=== PATIENT | male | born 1950 | race African-American/Black ===

== ENCOUNTER 2019-03-18 18:01 | Inpatient (IN) | payer OTHER ==
--- NOTE | 2019-03-18 19:17 | PDOC ---
History of Present Illness - General Chief Complaint: Injury Stated Complaint: FALL INJURY Time Seen by Provider: 03/18/19 19:15 History Source: Patient - History of Present Illness Initial Comments: 03/18/19 20:25 68-year-old male past medical history of hypertension,Seizure disorder, hypercholesteremia, HIV with viral load undetectable, left hip fracture status post hip replacement complaining of trip and fall yesterday to the right side. Patient reports right hip pain with inability to walk since the fall. Patient is unable to weight-bear. Patient was brought in by ambulance for evaluation. PCP: Dr. Cooley left hip surgery at [facility] 2018 03/18/19 20:53 Past History - Past Medical History Allergies/Adverse Reactions: Allergies Allergy/AdvReac Type Severity Reaction Status Date / Time No Known Allergies Allergy Verified 03/18/19 18:40 Home Medications: Ambulatory Orders Aspirin [Ecotrin] 81 mg PO DAILY 03/18/19 Atorvastatin Calcium 10 mg PO DAILY 03/18/19 Elviteg/Cob/Emtri/Tenof Alafen [Genvoya Tablet] 1 tab PO DAILY 03/18/19 Ferrous Sulfate 325 mg PO Q12H 03/18/19 Levetiracetam 500 mg PO BID 03/18/19 Lisinopril 5 mg PO DAILY 03/18/19 COPD: No HTN: Yes Hypercholesterolemia: Yes HIV: Yes Seizures: Yes - Surgical History Orthopedic Surgery: Yes (left hip surgery ) - Psycho Social/Smoking Cessation Hx Smoking History: Never smoked Review of Systems - Review of Systems Able to Perform ROS?: Yes Is the patient limited Tamazight proficient: No Constitutional: No: Symptoms Reported, See HPI, Chills, Diaphoresis, Fever, Loss of Appetite, Malaise, Night Sweats, Weakness, Weight Stable, Unintentional Wgt. Loss, Unexplained wgt Loss, Other Musculoskeletal: Yes: Other (hip pain) *Physical Exam - Vital Signs Last Vital Signs Temp Pulse Resp BP Pulse Ox 98 F 99 H 18 139/94 100 03/18/19 18:29 03/18/19 18:29 03/18/19 18:29 03/18/19 18:29 03/18/19 18:29 - Physical Exam General Appearance: Yes: Appropriately Dressed Musculoskeletal: positive: Other (right leg slight shortening, unable to ROM. ) Extremity: positive: Normal Capillary Refill, Normal Inspection Integumentary: positive: Warm Neurologic: positive: Fully Oriented, Alert ED Treatment Course - LABORATORY CBC & Chemistry Diagram: 03/18/19 21:12 03/18/19 21:12 ED Progress Note - Progress Note Progress Note: 03/18/19 20:29 A: right femur fracture P: xray cbc cmp pt/ ptt type and screen Medical Decision Making - Medical Decision Making 03/18/19 20:35 Dr. Grossman/ ida paged 03/18/19 21:14 dr. grossman/ ida paged x 3 . pending call back. 03/18/19 21:[address] grossman. recommends admission/ npo Preop labs 03/19/19 03:52 Discharge - Discharge Information Problems reviewed: Yes Clinical Impression/Diagnosis: Closed right femoral fracture Qualifiers: Encounter type: initial encounter Femur location: base of neck Fracture alignment: nondisplaced Qualified Code(s): S72.044A - Nondisplaced fracture of base of neck of right femur, initial encounter for closed fracture - Admission Yes - Follow up/Referral - Patient Discharge Instructions - Post Discharge Activity
[2019-03-18] MEDS ORDERED: ACETAMINOPHEN 1000 MG/100 ML VIAL (NON FORMULARY) IVPB ONE (20:11)
[2019-03-18] MEDS ORDERED: SODIUM CHLORIDE 1,000 ML IV SCH (20:15)
--- NOTE | 2019-03-18 21:24 | PN ---
Teaching Attending Note Name of Resident: Nehal Baca ATTENDING PHYSICIAN STATEMENT I saw and evaluated the patient. I reviewed the resident's note and discussed the case with the resident. I agree with the resident's findings and plan as documented. SUBJECTIVE: 68-year-old male with history of hypertension, seizure disorder, hypercholesterolemia, HIV reported to be well-controlled on Genvoya with allegedly undetectable HIV viral load status post left hip fracture with hip replacement presented to hospital complaining of a trip and fall shortly prior to presentation. Patient reports that [place] and [place] and fell on his right hip and subsequently was unable to walk or weight- bear. He was brought in by ambulance for evaluation. He reports significant pain to his right hip. She denied any head trauma or LOC. OBJECTIVE: Last Vital Signs Temp Pulse Resp BP Pulse Ox 98 F 99 H 18 139/94 100 03/18/19 18:29 03/18/19 18:29 03/18/19 18:29 03/18/19 18:29 03/18/19 18:29 GENERAL: Thin, frail, not in acute distress HEENT: Normocephalic, atraumatic. PERRLA, EOMI. No conjunctival pallor. Sclera are non- icteric. Moist mucous membranes. Oropharynx is clear. NECK: Supple. Full ROM. No JVD. Carotid pulses 2+ and symmetric, without bruits. No thyromegaly. No lymphadenopathy. CARDIOVASCULAR: Regular rate and rhythm. No murmurs, rubs, or gallops. Distal pulses are 2+ and symmetric. PULMONARY: No evidence of respiratory distress. Lungs clear to auscultation bilaterally. No wheezing, rales or rhonchi. ABDOMINAL: Soft. Non-tender. Non-distended. No rebound or guarding. No organomegaly. Normoactive bowel sounds. MUSCULOSKELETAL Normal range of motion at all joints. No bony deformities or tenderness. No CVA tenderness. EXTREMITIES: Right lower extremity externally rotated SKIN: Warm and dry. Normal capillary refill. No rashes. No jaundice. PSYCHIATRIC: Cooperative. Good eye contact. Appropriate mood and affect. Abnormal Lab Results 03/18/19 03/18/19 21:12 21:12 Hct 49.1 H Plt Count 132 L BUN 32.5 H Random Glucose 66 L Calcium 10.2 H Total Bilirubin 2.6 H AST 130 H Total Protein 8.6 H Imaging reviewed Mildly impacted fracture involving right femoral neck which is probably acute, status post left hip replacement. No obvious periprosthetic fracture visualized. ASSESSMENT AND PLAN: 68-year-old male with right femoral neck fracture, acute. Orthopedics was consulted from the ER Dr. Grossman is aware. Admit to [facility] Orthopedics consult PT and PTT Type and screen Bedrest Pain control IV fluid perioperatively DVT prophylaxis with heparin subcu #Hyperbilirubinemiauncertain cause Right upper quadrant ultrasound to evaluate gallbladder #Hypoglycemia Will place on D5W #Thrombocytopenia Continue to monitor platelets can evaluate also for splenomegaly with abdominal ultrasound #HIV Would obtain medical records from HIV doctor ID consult for genvoya approval #Seizure disorder Keppra 500 mg IV twice daily for seizure prophylaxis
[2019-03-18] MEDS ORDERED: ACETAMINOPHEN INJECTION 100 ML IVPB ONE (22:14)
[2019-03-18 22:35] LABS: BASO % 0.7 % (0-2.0); EOS % 0.2 % (0-4.5); HEMATOCRIT 49.1 % (35.4-49); HEMOGLOBIN 16.7 GM/dL (11.7-16.9); MCH 31.9 pg (25.7-33.7); MCHC 34.1 g/dl (32.0-35.9); MEAN CELL VOLUME 93.6 fl (80-96); MEAN PLT VOLUME 10.1 fl (7.5-11.1); MONO % 5.1 % (3.8-10.2); PLATELET COUNT 132 K/MM3 (134-434); RBC 5.24 M/mm3 (4.00-5.60); RDW 13.8 % (11.9-15.9); WHITE BLOOD COUNT 7.9 K/mm3 (4.0-10.0)
--- NOTE | 2019-03-18 22:44 | HP ---
CHIEF COMPLAINT: right thigh pain and inability to ambulate after fall PCP: Dr Cooley HISTORY OF PRESENT ILLNESS: 68 y/o M with PMH of HTN, HLD, seizure disorder (last seizure in 2018), HIV with undetectable viral load, left hip fracture s/p hip replacement last year at [facility] presenting to the ED for right leg pain after a fall. According to the patient, he was rushing to cross the street when he tripped over the broken pavement and fell on his right side without injury to his shoulders or head. He denied dizziness, loss of consciousness, syncope, palpitations, blurry vision or headache prior to fall. Right after the fall, patient was able to ambulate with assistance from bystanders and 2 police officers who then took him home. 3- 4 hours later, the patient began to feel a sharp, intermittent and non radiating 5/10 pain in his right leg.The pain was not associated with limb weakness or numbness; But with inability to bear weight on the right leg and ambulation. Direct pressure further aggravates the pain with no alleviating factors. Patient further denied SOB,chest pain, back pain or change in BM or urination. ER course was notable for: (1) cbc unremarkable, CMP remarkable for BG 66, BUN 32.5, cr high normal at 1.3 , t eliecer 2.6, AST 130, mild hypercalcemia at 10.2 and total protein at 8.9 (2) CXR with no acute pathology. Hip/pelvis Xray: mildly impacted fracture of right femoral neck. (3) Ortho Dr Grossman contacted: pre op labs, NPO and will see pt in the am Recent Travel: none PAST MEDICAL HISTORY: as above PAST SURGICAL HISTORY: appendectomy , Left hip replacement Social History: Smokin/2 PPD for 9 yrs Alcohol: denies buy used to in his younger years Drugs: cocaine and marijuana in his younger years Allergies No Known Allergies Allergy (Verified 03/18/19 18:40) HOME MEDICATIONS: Home Medications Medication Instructions Recorded Aspirin [Ecotrin] 81 mg PO DAILY 03/18/19 Atorvastatin Calcium 10 mg PO DAILY 03/18/19 Elviteg/Cob/Emtri/Tenof Alafen 1 tab PO DAILY 03/18/19 [Genvoya Tablet] Ferrous Sulfate 325 mg PO Q12H 03/18/19 Levetiracetam 500 mg PO BID 03/18/19 Lisinopril 5 mg PO DAILY 03/18/19 REVIEW OF SYSTEMS CONSTITUTIONAL: Absent: fever, chills, diaphoresis, generalized weakness, malaise, loss of appetite, weight change HEENT: Absent: rhinorrhea, nasal congestion, throat pain, throat swelling, difficulty swallowing, mouth swelling, ear pain, eye pain, visual changes CARDIOVASCULAR: Absent: chest pain, syncope, palpitations, irregular heart rate, lightheadedness , peripheral edema RESPIRATORY: Absent: cough, shortness of breath, dyspnea with exertion, orthopnea, wheezing, stridor, hemoptysis GASTROINTESTINAL: Absent: abdominal pain, abdominal distension, nausea, vomiting, diarrhea, constipation, melena, hematochezia GENITOURINARY: Absent: dysuria, frequency, urgency, hesitancy, hematuria, flank pain, genital pain MUSCULOSKELETAL: thigh pain Absent: myalgia, arthralgia, joint swelling, back pain, neck pain SKIN: Absent: rash, itching, pallor HEMATOLOGIC/IMMUNOLOGIC: Absent: easy bleeding, easy bruising, lymphadenopathy, frequent infections ENDOCRINE: Absent: unexplained weight gain, unexplained weight loss, heat intolerance, cold intolerance NEUROLOGIC: Absent: headache, focal weakness or paresthesias, dizziness, unsteady gait, seizure, mental status changes, bladder or bowel incontinence PSYCHIATRIC: Absent: anxiety, depression, suicidal or homicidal ideation, hallucinations. PHYSICAL EXAMINATION Vital Signs - 24 hr 03/18/19 18:29 Temperature 98 F Pulse Rate 99 H Respiratory 18 Rate Blood Pressure 139/94 O2 Sat by Pulse 100 Oximetry (%) GENERAL: Awake, alert, and fully oriented, in no acute distress. HEAD: Normal with no signs of trauma. EYES: Pupils equal, round and reactive to light, extraocular movements intact, sclera anicteric, conjunctiva clear. No lid lag. EARS, NOSE, THROAT: oropharynx clear without exudates. Moist mucous membranes. NECK: Normal range of motion, supple without lymphadenopathy, JVD, or masses. LUNGS: Breath sounds equal, clear to auscultation bilaterally. No wheezes, and no crackles. No accessory muscle use. HEART: Regular rate and rhythm, normal S1 and S2 without murmur, rub or gallop. ABDOMEN: Soft, nontender, not distended, normoactive bowel sounds, no guarding, no rebound, no masses. No hepatomegaly or splenomegaly. MUSCULOSKELETAL: decreased range of motion in the right hip and right knee. UPPER EXTREMITIES: 2+ pulses, warm, well-perfused. No cyanosis. No clubbing. No peripheral edema. LOWER EXTREMITIES: 2+ pulses, warm, well-perfused. No calf tenderness. No peripheral edema. NEUROLOGICAL: Cranial nerves II-XII intact. Normal speech. motor strength 5/5 and sensation intact. PSYCHIATRIC: Cooperative. Good eye contact. Appropriate mood and affect. SKIN: Warm, dry, normal turgor, fungal nail infection b/l and dry skin and venous stasis changes b/l CBC,CMP WBC 7.9 K/mm3 (4.0-10.0) 03/18/19 21:12 RBC 5.24 M/mm3 (4.00-5.60) 03/18/19 21:12 Hgb 16.7 GM/dL (11.7-16.9) 03/18/19 21:12 Hct 49.1 % (35.4-49) H 03/18/19 21:12 MCV 93.6 fl (80-96) 03/18/19 21:12 MCH 31.9 pg (25.7-33.7) 03/18/19 21:12 MCHC 34.1 g/dl (32.0-35.9) 03/18/19 21:12 RDW 13.8 % (11.9-15.9) 03/18/19 21:12 Plt Count 132 K/MM3 (134-434) L 03/18/19 21:12 MPV 10.1 fl (7.5-11.1) 03/18/19 21:12 Absolute Neuts (auto) 5.9 K/mm3 (1.5-8.0) 03/18/19 21:12 Neutrophils % 75.0 % (42.8-82.8) 03/18/19 21:12 Lymphocytes % 19.0 % (8-40) 03/18/19 21: Monocytes % 5.1 % (3.8-10.2) 03/18/19 21:12 Eosinophils % 0.2 % (0-4.5) 03/18/19 21:12 Basophils % 0.7 % (0-2.0) 03/18/19 21: Nucleated RBC % 0 % (0-0) 03/18/19 21:12 Sodium 138 mmol/L (136-145) 03/18/19 21:12 Potassium 4.2 mmol/L (3.5-5.1) 03/18/19 21:12 Chloride 104 mmol/L (98-107) 03/18/19 21:12 Carbon Dioxide 26 mmol/L (21-32) 03/18/19 21:12 Anion Gap 9 MMOL/L (8-16) 03/18/19 21:12 BUN 32.5 mg/dL (7-18) H 03/18/19 21:12 Creatinine 1.3 mg/dL (0.55-1.3) 03/18/19 21:12 Est GFR (CKD-EPI)AfAm 64.52 03/18/19 21:12 Est GFR (CKD-EPI)NonAf 55.67 03/18/19 21:12 Random Glucose 66 mg/dL (74-106) L 03/18/19 21:12 Calcium 10.2 mg/dL (8.5-10.1) H 03/18/19 21:12 Total Bilirubin 2.6 mg/dL (0.2-1) H 03/18/19 21:12 AST 130 U/L (15-37) H 03/18/19 21:12 ALT 57 U/L (13-61) 03/18/19 21:12 Alkaline Phosphatase 86 U/L (45-117) 03/18/19 21:12 Total Protein 8.6 g/dl (6.4-8.2) H 03/18/19 21:12 Albumin 4.2 g/dl (3.4-5.0) 03/18/19 21:12 ASSESSMENT/PLAN: 68 y/o M with PMH of HTN, HLD, seizure disorder (last seizure in 2018), HIV with undetectable viral load, left hip fracture s/p hip replacement last year at [facility] presenting to the ED for right leg pain after a fall. admitted for right femoral neck fracture. Right femoral neck fracture Hip/pelvis Xray: mildly impacted fracture of right femoral neck.acute NPO pre op labs ordered ortho consult- Dr Grossman will see pt in the morning pain control with tylenol for now. kidney function borderline currently. avoid NSAIDs mild Hypercalcemia monitor follow on routine CMP in the morning abnormal LFTs tbil 2.6, AST 130 direct bili ordered abdominal US ordered for further eval Seizure disorder keppra 500 mg IV BID HTN lisinopril 5mg PO HOLDING asa 81 daily for possible intervention tomorrow HLD lipitor 10mg PO daily HIV genvoya daily ID consult Dr Medellin for approval of HAART regimen FEN NPO except for meds BMP glucose 66. 1 amp D50 given. monitor D5LR@75 started monitor lytes DVT SCDs Visit type - Emergency Visit Emergency Visit: Yes ED Registration Date: 03/18/19 Care time: The patient presented to the Emergency Department on the above date and was hospitalized for further evaluation of their emergent condition. - New Patient This patient is new to me today: Yes Date on this admission: 03/19/19 - Critical Care Critical Care patient: No ATTENDING PHYSICIAN STATEMENT I saw and evaluated the patient. I reviewed the resident's note and discussed the case with the resident. I agree with the resident's findings and plan as documented. SUBJECTIVE: OBJECTIVE: ASSESSMENT AND PLAN:
[2019-03-18 23:11] LABS: ALBUMIN 4.2 g/dl (3.4-5.0); BILIRUBIN,TOTAL 2.6 mg/dL (0.2-1); BLOOD UREA NITROGEN 32.5 mg/dL (7-18); CALCIUM 10.2 mg/dL (8.5-10.1); CREATININE 1.3 mg/dL (0.55-1.3); POTASSIUM 4.2 mmol/L (3.5-5.1); TOT PROT 8.6 g/dl (6.4-8.2)
[2019-03-18] MEDS ORDERED: DEXTROSE 5%-LACTATED RINGERS 1,000 ML IV SCH (23:30)
[2019-03-18] MEDS ORDERED: DEXTROSE 50%-WATER - 25 GM/50 ML VIAL IVPUSH ONE (23:45)
[2019-03-19] MEDS ORDERED: DEXTROSE 50%-WATER 25 GM/50 ML DISP.SYRIN ONE (00:08)
[2019-03-19 00:53] LABS: BILIRUBIN,DIRECT 0.7 mg/dL (0.0-0.2)
[2019-03-19] MEDS ORDERED: ACETAMINOPHEN 1000 MG/100 ML VIAL (NON FORMULARY) IVPB PRN ×3 (04:30→13:46)
--- NOTE | 2019-03-19 07:56 | PN ---
Progress Note, Physician History of Present Illness: 68-year-old male with history of hypertension, seizure disorder, hypercholesterolemia, HIV reported to be well-controlled on Genvoya with allegedly undetectable HIV viral load status post left hip fracture with hip replacement presented to hospital complaining of a trip and fall shortly prior to presentation. Patient [place] that [place] on his right hip and subsequently was unable to walk or weight- bear. He was brought in by ambulance for evaluation. He reports significant pain to his right hip. She denied any head trauma or LOC. - Current Medication List Current Medications: Active Medications Acetaminophen (Ofirmev Injection -) 1,000 mg IVPB Q6H PRN PRN Reason: PAIN LEVEL 1-5 Atorvastatin Calcium (Lipitor -) 10 mg PO HS [facility] Elvitegravir/Cobicis/Emtricit/Tenof (Genvoya (Non-Formulary)) 1 tab PO DAILY@ 0800 [facility] Heparin Sodium (Porcine) (Heparin -) 5,000 unit SQ BID [facility] Sodium Chloride (Normal Saline -) 1,000 mls @ 125 mls/hr IV ASDIR [facility] Last Admin: 03/18/19 22:40 Dose: 125 mls/hr Dextrose/Lactated Ringer's (D5-Lr -) 1,000 mls @ 75 mls/hr IV ASDIR [facility] Last Admin: 03/19/19 00:17 Dose: 75 mls/hr Influenza Virus Vaccine Quadrival (Flulaval Quad [id number]) 60 mcg IM .ONCE ONE Stop: 03/19/19 10:01 Levetiracetam (Keppra Injection -) 500 mg IVPB BID [facility] Lisinopril (Prinivil) 5 mg PO DAILY [facility] Pneumococcal 13-Valent Conj Vacc (Prevnar 13 Syringe -) 0.5 ml IM .ONCE ONE Stop: 03/19/19 10:01 - Objective Vital Signs: Vital Signs Temperature 98.1 F 03/19/19 01:50 Pulse Rate 73 03/19/19 01:50 Respiratory Rate 18 03/19/19 01:50 Blood Pressure 140/91 03/19/19 01:50 O2 Sat by Pulse Oximetry (%) 96 03/19/19 01:50 Constitutional: Yes: No Distress, Calm, Thin Eyes: Yes: WNL, Conjunctiva Clear HENT: Yes: WNL, Atraumatic, Normocephalic Neck: Yes: WNL, Supple, Trachea Midline Cardiovascular: Yes: WNL, Regular Rate and Rhythm, Other (venous stasis changes to LE) Respiratory: Yes: WNL, Regular, CTA Bilaterally Gastrointestinal: Yes: WNL, Normal Bowel Sounds ...Rectal Exam: Yes: Deferred Genitourinary: Yes: WNL Breast(s): Yes: WNL Musculoskeletal: Yes: Other (decreased ROm to right hip/knee) Extremities: Yes: External Rotation (right hip), Other Edema: No Peripheral Pulses WNL: Yes Peripheral Pulses: Left Radial: 2+, Right Radial: 2+, Left Doralis Pedis: 2+, Right Dorsalis Pedis: 2+, Left Femoral: 2+, Right Femoral: 2+ Integumentary: Yes: Other (funal nail infection noted to nails) Neurological: Yes: WNL, Alert, Oriented Labs: CBC, BMP 03/18/19 21:12 03/18/19 21:12 INR, PTT INR 1.30 (0.83-1.09) H 03/19/19 00:00 - ....Imaging X-ray: Report Reviewed Problem List - Problems (1) HTN (hypertension) Assessment/Plan: normotensive c/w with home lisinipril Code(s): I10 - ESSENTIAL (PRIMARY) HYPERTENSION (2) Seizure Assessment/Plan: no seizure activity c/w with home dose keppra keppra level pending Code(s): R56.9 - UNSPECIFIED CONVULSIONS (3) HLD (hyperlipidemia) Assessment/Plan: c/w home dose of atorvastatin low fat low choleterol diet after surgery Code(s): E78.5 - HYPERLIPIDEMIA, UNSPECIFIED (4) HIV (human immunodeficiency virus infection) Assessment/Plan: ID consultation pending c/w antivirals once cleared by ID Code(s): B20 - HUMAN IMMUNODEFICIENCY VIRUS [HIV] DISEASE (5) Prophylactic measure Assessment/Plan: FEN NPO pending OR IVF monitor electrolytes DVT heparin sq Dispo maintain as inpatient full code discharge planning Code(s): Z29.9 - ENCOUNTER FOR PROPHYLACTIC MEASURES, UNSPECIFIED (6) Closed right femoral fracture Assessment/Plan: for OR today with Dr Grossman Code(s): S72.91XA - UNSP FRACTURE OF RIGHT FEMUR, INIT FOR CLOS FX Qualifiers: Encounter type: initial encounter Femur location: base of neck Fracture alignment: nondisplaced Qualified Code(s): S72.044A - Nondisplaced fracture of base of neck of right femur, initial encounter for closed fracture (7) LFTs abnormal Assessment/Plan: tbil 2.6, AST 130 direct bili ordered abdominal US pending for further eval avoid hepatotixic agents Code(s): R94.5 - ABNORMAL RESULTS OF LIVER FUNCTION STUDIES Visit type - Emergency Visit Emergency Visit: Yes ED Registration Date: 03/18/19 Care time: The patient presented to the Emergency Department on the above date and was hospitalized for further evaluation of their emergent condition. - New Patient This patient is new to me today: Yes Date on this admission: 03/19/19 - Critical Care Critical Care patient: No - Discharge Referral Referred to [facility] No
[2019-03-19] MEDS ORDERED: ELVITEG/COB/EMTRI/TENOF (GENVOYA) TABLET (NF) PO SCH (08:00)
[2019-03-19 08:12] LABS: BASO % 0.1 % (0-2.0); EOS % 0.6 % (0-4.5); HEMATOCRIT 45.4 % (35.4-49); HEMOGLOBIN 15.5 GM/dL (11.7-16.9); LYMPH % 23.4 % (8-40); MCH 31.8 pg (25.7-33.7); MCHC 34.1 g/dl (32.0-35.9); MEAN CELL VOLUME 93.3 fl (80-96); MEAN PLT VOLUME 8.9 fl (7.5-11.1); MONO % 7.2 % (3.8-10.2); NEUT % 68.7 % (42.8-82.8); PLATELET COUNT 89 K/MM3 (134-434); RBC 4.87 M/mm3 (4.00-5.60); RDW 13.6 % (11.9-15.9); WHITE BLOOD COUNT 6.1 K/mm3 (4.0-10.0)
[2019-03-19 08:27] LABS: INR 1.26 (0.83-1.09); PROTHROMBIN TIME (PATIENT) 14.9 SEC (9.7-13.0)
[2019-03-19 08:30] LABS: ACTIVATED PTT 29.2 SECONDS (25.2-36.5)
[2019-03-19 08:38] LABS: INR 1.33 (0.83-1.09); PROTHROMBIN TIME (PATIENT) 15.7 SEC (9.7-13.0)
[2019-03-19 08:40] LABS: ACTIVATED PTT 33.2 SECONDS (25.2-36.5)
[2019-03-19 08:45] LABS: ALBUMIN 3.6 g/dl (3.4-5.0); BILIRUBIN,TOTAL 2.1 mg/dL (0.2-1); BLOOD UREA NITROGEN 29.1 mg/dL (7-18); CALCIUM 9.6 mg/dL (8.5-10.1); CREATININE 1.1 mg/dL (0.55-1.3); MAGNESIUM 2.6 mg/dL (1.8-2.4); PHOSPHOROUS 2.4 mg/dL (2.5-4.9); POTASSIUM 3.6 mmol/L (3.5-5.1); TOT PROT 7.4 g/dl (6.4-8.2)
[2019-03-19] MEDS ORDERED: FLU VACCINE QUAD 60 MCG/0.5 ML (MDV 19-20) IM ONE (10:00)
[2019-03-19] MEDS ORDERED: LISINOPRIL 5 MG TABLET (FP) PO SCH (10:00)
[2019-03-19] MEDS ORDERED: HEPARIN NA (PORCINE) 5,000 UNITS/ML 1ML VIAL SQ SCH (10:00)
[2019-03-19] MEDS ORDERED: levETIRAcetam 500 MG/5 ML INJECTION VIAL IVPB SCH (10:00)
[2019-03-19] MEDS ORDERED: PNEUMOC 13-VAL CONJ-DIP CRM/PF 0.5 ML DISP.SYRIN IM ONE (10:00)
--- NOTE | 2019-03-19 10:29 | EKG ---
Test Reason : Blood Pressure : / mmHG Vent. Rate : 099 BPM Atrial Rate : 099 BPM P-R Int : 146 ms QRS Dur : 066 ms QT Int : 358 ms P-R-T Axes : 069 -31 038 degrees QTc Int : 459 ms NORMAL SINUS RHYTHM WITH SINUS ARRHYTHMIA POSSIBLE LEFT ATRIAL ENLARGEMENT LEFT AXIS DEVIATION ABNORMAL ECG WHEN COMPARED WITH ECG OF 18-MAR-2019 21:22, NO SIGNIFICANT CHANGE WAS FOUND Confirmed by JONH SOARES, INDY ([id number]) on 03/19/2019 10:29:33 AM Referred By: Confirmed By:INDY BORJA MD
[2019-03-19] MEDS ORDERED: EPHEDRINE SULFATE/0.9% NACL/PF 50 MG/10 ML SYRINGE NR ONE (11:26)
[2019-03-19] MEDS ORDERED: SUCCINYLCHOLINE CHLORIDE 200 MG/10 ML SYRINGE ONE (11:26)
[2019-03-19] MEDS ORDERED: PROPOFOL 20 ML ONE ×2 (11:26)
[2019-03-19] MEDS ORDERED: MIDAZOLAM HCL 2 MG/2 ML SINGLE DOSE VIAL ONE ×2 (11:27)
[2019-03-19] MEDS ORDERED: ceFAZolin SODIUM 1 GM VIAL IVPB ONE (11:40)
--- NOTE | 2019-03-19 12:09 | PN ---
Progress Note (short form) - Note Progress Note: Ortho Full consult will be dictated by Dr. Grossman a/p right femoral neck fx OR for right hip cannulated screws
--- NOTE | 2019-03-19 12:10 | OP ---
Operative Note - Note: Operative Date: 03/19/19 ([facility]) Pre-Operative Diagnosis: right femoral neck fx Operation: right hip cannulated screws Post-Operative Diagnosis: Same as Pre-op Surgeon: José Miguel Grossman Anesthesia: General, Local Estimated Blood Loss (mls): 10
[2019-03-19] MEDS ORDERED: ACETAMINOPHEN INJECTION 100 ML IVPB ONE (12:39)
[2019-03-19] MEDS ORDERED: ONDANSETRON 4 MG/2 ML VIAL IVPUSH PRN ×2 (13:08→13:46)
[2019-03-19] MEDS ORDERED: oxyCODONE HCL 5 MG TABLET PO PRN (13:08)
--- NOTE | 2019-03-19 13:08 | CON.ID ---
Consult Reason for Consultation:: HIV medication - History of Present Illness Chief Complaint: right leg pain following fall History of Present Illness: Mr. Winkler is a 68y/o male with HIV (compliant on Genvoya), left hip fx s/p hip replacement, HTN, HLD, and seizure disorder who presents following fall on right leg. Pt sustained a right femoral neck fx requiring surgery. Consulted for continuing HIV medication. Pt reports diagnosis of HIV in 1990, most likely from IV drug use. He sees Dr. Moya at [facility]. His last labs 1 month ago resulted in undetectable viral load, CD4 >1000. He has been compliant with Genvoya for 2 years and was on Truvada prior. He is unsure of medications taken prior to Truvada. - History Source History Provided By: Patient Limitations to Obtaining History: No Limitations - Past Medical History PUMP SERVICER: Yes: Seizure Cardio/Vascular: Yes: HTN, Hyperlipdemia Infectious Disease: Yes: HIV - Past Surgical History Past Surgical History: Yes: Joint Replacement (left hip) - Alcohol/Substance Use Hx Alcohol Use: Yes - Smoking History Smoking history: Never smoked Have you smoked in the past 12 months: No Home Medications - Allergies Allergies/Adverse Reactions: Allergies Allergy/AdvReac Type Severity Reaction Status Date / Time No Known Allergies Allergy Verified 03/18/19 18:40 - Home Medications Home Medications: Ambulatory Orders Aspirin [Ecotrin] 81 mg PO DAILY 03/18/19 Atorvastatin Calcium 10 mg PO DAILY 03/18/19 Elviteg/Cob/Emtri/Tenof Alafen [Genvoya Tablet] 1 tab PO DAILY 03/18/19 Ferrous Sulfate 325 mg PO Q12H 03/18/19 Levetiracetam 500 mg PO BID 03/18/19 Lisinopril 5 mg PO DAILY 03/18/19 Review of Systems - Review of Systems Constitutional: denies: Chills, Fever Cardiovascular: denies: Chest Pain, Shortness of Breath Musculoskeletal: reports: Extremity Pain Physical Exam Vital Signs: Vital Signs Temperature 98.0 F 03/19/19 12:18 Pulse Rate 75 03/19/19 12:30 Respiratory Rate 18 03/19/19 12:30 Blood Pressure 149/105 H 03/19/19 12:30 O2 Sat by Pulse Oximetry (%) 100 03/19/19 12:30 Constitutional: Yes: No Distress, Calm Eyes: Yes: Conjunctiva Clear, EOM Intact HENT: Yes: Atraumatic, Normocephalic Cardiovascular: Yes: Regular Rate and Rhythm, Murmur Respiratory: Yes: CTA Bilaterally Gastrointestinal: Yes: Normal Bowel Sounds, Soft. No: Tenderness Neurological: Yes: Alert, Oriented Labs: CBC, BMP 03/19/19 07:00 03/19/19 07:00 Imaging - Results X-ray: Report Reviewed (mild impacted femoral neck fx right side), Image Reviewed Ultrasound: Report Reviewed (cholelithiasis), Image Reviewed Assessment/Plan Mr. Winkler is a 68y/o male with HIV (compliant on Genvoya), left hip fx s/p hip replacement, HTN, HLD, and seizure disorder who presents following fall on right leg. Pt sustained a right femoral neck fx requiring surgery. Consulted for continuing HIV medication. #HIV Undetectable viral load, CD4 >1000, compliant on Genvoya -restart Genvoya Will sign off. Please re-consult if any recommendations are needed.
[2019-03-19] MEDS ORDERED: LACTATED RINGERS SOLUTION 1,000 ML IV SCH ×4 (13:15→13:46)
--- NOTE | 2019-03-19 13:24 | PREOP ---
ORTHOPEDIC CONSULTATION DATE OF ADMISSION: 03/18/2019 HISTORY OF PRESENT ILLNESS: Patient is a 68-year-old, male, status post fall last night, complaining of pain in his right hip. The patient is status post left total hip replacement years before. Patient also is HIV positive. PHYSICAL EXAMINATION: Musculoskeletal: Patient has increased pain with internal and external rotation and unable to straight leg raise. He has equal limb lengths. No tenderness around the knee, ankle. No swelling, ecchymosis or erythema. Calves are soft, nontender. Neurovascularly intact. IMAGING: X-rays show a non-displaced, impacted in valgus, right femoral neck fracture. IMPRESSION: Right femoral neck fracture, impacted into valgus, with no displacement. PLAN: Risks, benefits, and alternatives discussed with him in great detail. Patient will be booked for a cannulated screw operation later today. Patient realizes that he may go on to AVN or non-union; at a later date, will need to be converted to either a venancio or a total hip replacement in the future. GUNJAN ALSTON M.D. [id number]
[2019-03-19] MEDS ORDERED: DEXTROSE 5%-LACTATED RINGERS 1,000 ML IV SCH (13:46)
[2019-03-19] MEDS ORDERED: SODIUM CHLORIDE 1,000 ML IV SCH (13:46)
[2019-03-19] MEDS: oxyCODONE HCL 5 MG TABLET PO PRN (19:36)
[2019-03-19] MEDS: ATORVASTATIN CA 10 MG TABLET (FP) PO SCH (21:09)
--- NOTE | 2019-03-19 21:09 | PN ---
Teaching Attending Note Name of Resident: Sia Oseguera ATTENDING PHYSICIAN STATEMENT I saw and evaluated the patient. I reviewed the resident's note and discussed the case with the resident. I agree with the resident's findings and plan as documented. SUBJECTIVE: OBJECTIVE: ASSESSMENT AND PLAN: R FEMORAL NECK FRACTURE HIV+ ASYMPTOMATIC PT REPORTS VL UNDETECTABLE, CD4>1000 CONTINUE GENVOYA POST DISCHARGE PT WILL F/U WITH HIS PROVIDER AT [facility]
[2019-03-19] MEDS: levETIRAcetam 500 MG/5 ML INJECTION VIAL IVPB SCH (21:10)
[2019-03-19] MEDS ORDERED: ATORVASTATIN CA 10 MG TABLET (FP) PO SCH (22:00)
--- NOTE | 2019-03-20 08:19 | PN ---
Progress Note, Physician Chief Complaint: S/P ORIF POD#1. Raghav well managed and anxious to continue rehab and go home History of Present Illness: 68-year-old male with history of hypertension, seizure disorder, hypercholesterolemia, HIV reported to be well-controlled on Genvoya with allegedly undetectable HIV viral load status post left hip fracture with hip replacement presented to hospital complaining of a trip and fall shortly prior to presentation. Patient reports that [place] on his right hip and subsequently was unable to walk or weight- bear. He was brought in by ambulance for evaluation. He reports significant pain to his right hip. She denied any head trauma or LOC. - Current Medication List Current Medications: Active Medications Acetaminophen (Ofirmev Injection -) 1,000 mg IVPB Q6H PRN PRN Reason: PAIN LEVEL 1-5 Aspirin (Asa -) 325 mg PO DAILY [facility] Atorvastatin Calcium (Lipitor -) 10 mg PO HS [facility] Last Admin: 03/19/19 21:09 Dose: 10 mg Elvitegravir/Cobicis/Emtricit/Tenof (Genvoya (Non-Formulary)) 1 tab PO DAILY@ 0800 [facility] Lactated Ringer's (Lactated Ringers Solution) 1,000 mls @ 75 mls/hr IV ASDIR [facility] Last Admin: 03/19/19 19:36 Dose: 75 mls/hr Levetiracetam (Keppra Injection -) 500 mg IVPB BID [facility] Last Admin: 03/19/19 21:10 Dose: 500 mg Lisinopril (Prinivil) 5 mg PO DAILY [facility] Oxycodone HCl (Roxicodone -) 5 mg PO Q4H PRN PRN Reason: PAIN LEVEL 1-5 Last Admin: 03/19/19 19:36 Dose: 5 mg - Objective Vital Signs: Vital Signs Temperature 98.2 F 03/20/19 06:00 Pulse Rate 82 03/20/19 06:00 Respiratory Rate 20 03/20/19 06:00 Blood Pressure 126/78 03/20/19 06:00 O2 Sat by Pulse Oximetry (%) 98 03/19/19 21:00 Additional Findings/Remarks: Constitutional: Yes: No Distress, Calm, Thin Eyes: Yes: WNL, Conjunctiva Clear HENT: Yes: WNL, Atraumatic, Normocephalic Neck: Yes: WNL, Supple, Trachea Midline Cardiovascular: Yes: WNL, Regular Rate and Rhythm, Other (venous stasis changes to LE) Respiratory: Yes: WNL, Regular, CTA Bilaterally Gastrointestinal: Yes: WNL, Normal Bowel Sounds ...Rectal Exam: Yes: Deferred Genitourinary: Yes: WNL Breast(s): Yes: WNL Musculoskeletal: Yes: Other (decreased ROM secondary to surgical incision Extremities: Yes: s/p ORIF Edema: No Peripheral Pulses WNL: Yes Peripheral Pulses: Left Radial: 2+, Right Radial: 2+, Left Doralis Pedis: 2+, Right Dorsalis Pedis: 2+, Left Femoral: 2+, Right Femoral: 2+ Integumentary: Yes: Other (funal nail infection noted to nails) Neurological: Yes: WNL, Alert, Oriented Labs: CBC, BMP 03/19/19 07:00 03/19/19 07:00 INR, PTT INR 1.26 (0.83-1.09) H 03/19/19 07:00 - ....Imaging X-ray: Report Reviewed Problem List - Problems (1) HTN (hypertension) Assessment/Plan: normotensive c/w with home lisinipril Code(s): I10 - ESSENTIAL (PRIMARY) HYPERTENSION (2) Seizure Assessment/Plan: no seizure activity c/w with home dose keppra keppra level pending Code(s): R56.9 - UNSPECIFIED CONVULSIONS (3) HLD (hyperlipidemia) Assessment/Plan: c/w home dose of atorvastatin low fat low choleterol diet after surgery Code(s): E78.5 - HYPERLIPIDEMIA, UNSPECIFIED (4) HIV (human immunodeficiency virus infection) Assessment/Plan: ID consultation pending c/w antivirals once cleared by ID Code(s): B20 - HUMAN IMMUNODEFICIENCY VIRUS [HIV] DISEASE (5) Prophylactic measure Assessment/Plan: FEN low salt diet IVF dc'd monitor electrolytes DVT heparin sq Dispo maintain as inpatient full code discharge planning Code(s): Z29.9 - ENCOUNTER FOR PROPHYLACTIC MEASURES, UNSPECIFIED (6) Closed right femoral fracture Assessment/Plan: S/P ORIF pain management PT Code(s): S72.91XA - UNSP FRACTURE OF RIGHT FEMUR, INIT FOR CLOS FX Qualifiers: Encounter type: initial encounter Femur location: base of neck Fracture alignment: nondisplaced Qualified Code(s): S72.044A - Nondisplaced fracture of base of neck of right femur, initial encounter for closed fracture (7) LFTs abnormal Assessment/Plan: trending down avoid hepatotixic agents Code(s): R94.5 - ABNORMAL RESULTS OF LIVER FUNCTION STUDIES Visit type - Emergency Visit Emergency Visit: Yes ED Registration Date: 03/18/19 Care time: The patient presented to the Emergency Department on the above date and was hospitalized for further evaluation of their emergent condition. - New Patient This patient is new to me today: No - Critical Care Critical Care patient: No - Discharge Referral Referred to [facility] Med P.C.: No
[2019-03-20 08:56] LABS: BASO % 0.1 % (0-2.0); HEMATOCRIT 39.4 % (35.4-49); HEMOGLOBIN 13.4 GM/dL (11.7-16.9); LYMPH % 19.2 % (8-40); MCH 31.9 pg (25.7-33.7); MEAN CELL VOLUME 93.9 fl (80-96); MEAN PLT VOLUME 9.1 fl (7.5-11.1); MONO % 7.8 % (3.8-10.2); NEUT % 72.9 % (42.8-82.8); PLATELET COUNT 99 K/MM3 (134-434); RDW 13.6 % (11.9-15.9); WHITE BLOOD COUNT 10.2 K/mm3 (4.0-10.0)
[2019-03-20] MEDS: ASPIRIN 325 MG TABLET PO SCH (09:08)
[2019-03-20] MEDS: levETIRAcetam 500 MG/5 ML INJECTION VIAL IVPB SCH (09:08)
[2019-03-20] MEDS: oxyCODONE HCL 5 MG TABLET PO PRN ×2 (09:08→21:11)
[2019-03-20] MEDS: LISINOPRIL 5 MG TABLET (FP) PO SCH (09:08)
[2019-03-20 09:09] LABS: INR 1.23 (0.83-1.09); PROTHROMBIN TIME (PATIENT) 14.5 SEC (9.7-13.0)
[2019-03-20 09:22] LABS: ALBUMIN 2.8 g/dl (3.4-5.0); BLOOD UREA NITROGEN 21.8 mg/dL (7-18); CREATININE 1.1 mg/dL (0.55-1.3); MAGNESIUM 2.3 mg/dL (1.8-2.4); POTASSIUM 4.4 mmol/L (3.5-5.1); TOT PROT 6.1 g/dl (6.4-8.2)
--- NOTE | 2019-03-20 09:24 | OP ---
DATE OF OPERATION: 03/19/2019 PREOPERATIVE DIAGNOSIS: Impacted right femoral neck fracture. POSTOPERATIVE DIAGNOSIS: Impacted right femoral neck fracture. PROCEDURE PERFORMED: Cannulated screws right femoral neck fracture. SURGICAL ATTENDING: José Miguel Grossman MD ANESTHESIA: LMA. CLOSURE: Three 6.0 [place] cannulated screws of appropriate length, 2-0 for subcutaneous and Steri-Strips for the skin. ESTIMATED BLOOD LOSS: Negligible. COMPLICATIONS: None. CONDITION: To the recovery room in stable condition. DESCRIPTION OF PROCEDURE: The patient was taken to the operating room on March 19, 2019. General anesthesia by LMA was administered by the anesthesiologist. IV Kefzol was administered prophylactically prior to the case. The patient was to the fracture table with all prominences well-padded. The right hip area was prepped and draped in the usual sterile fashion with a shower curtain. A 1-inch incision over the lateral aspect of the thigh was incised through the fascia. Bovie cautery was used to obtain hemostasis. Using fluoroscopic guidance, 3 guidewires were placed in a parallel fashion and in an L formation, two being posteriorly and one more anteriorly from the lateral aspect of the femur through the femoral neck into the femoral head. Proper placement was confirmed in the AP and lateral planes by using the image intensifier. They were then screws with the appropriate-length 6.0 cancellous screws, two being 100 and one being 95 mm. This was done with the traction removed. Compression was performed by tightening the screws in sequence. The guidewires were removed. X-rays - AP, lateral and [id number] views - confirmed that no penetration of the screws into the hip joint. The wound was irrigated. Subcutaneous was closed with 2-0 Vicryl and Steri-Strips were used for skin. A sterile pressure dressing was applied. The patient was awakened from anesthesia and transferred to the recovery room in stable condition. No complication. Estimated blood loss was negligible. Citlalli FERNANDES/[id number]
[2019-03-20] MEDS: ELVITEG/COB/EMTRI/TENOF (GENVOYA) TABLET (NF) PO SCH (09:29)
[2019-03-20] MEDS ORDERED: ASPIRIN 325 MG TABLET PO SCH (10:00)
--- NOTE | 2019-03-20 13:47 | PN ---
Progress Note (short form) - Note Progress Note: POD1 s/p right femoral neck placement of acculated screws for hip fracture, under GA. Pt tolerated procedure well, minimap pain reported, no RIGGS, N/V, no other anesthetic issues/complications noted.
[2019-03-20] MEDS: ATORVASTATIN CA 10 MG TABLET (FP) PO SCH (21:08)
[2019-03-20] MEDS: levETIRAcetam 500 MG TABLET (FP) PO SCH (21:08)
[2019-03-21] MEDS: oxyCODONE HCL 5 MG TABLET PO PRN ×2 (07:16→18:55)
[2019-03-21] MEDS: ELVITEG/COB/EMTRI/TENOF (GENVOYA) TABLET (NF) PO SCH (08:00)
[2019-03-21 08:19] LABS: BASO % 0.1 % (0-2.0); EOS % 0.5 % (0-4.5); HEMATOCRIT 34.1 % (35.4-49); HEMOGLOBIN 11.8 GM/dL (11.7-16.9); LYMPH % 35.7 % (8-40); MCH 31.7 pg (25.7-33.7); MCHC 34.6 g/dl (32.0-35.9); MEAN CELL VOLUME 91.6 fl (80-96); MEAN PLT VOLUME 8.9 fl (7.5-11.1); MONO % 9.5 % (3.8-10.2); NEUT % 54.2 % (42.8-82.8); PLATELET COUNT 95 K/MM3 (134-434); RBC 3.72 M/mm3 (4.00-5.60); RDW 13.8 % (11.9-15.9); WHITE BLOOD COUNT 7.1 K/mm3 (4.0-10.0)
--- NOTE | 2019-03-21 08:38 | PN ---
Progress Note, Physician Chief Complaint: S/P ORIF POD#2. Pain well managed, awaiting rehab placement History of Present Illness: 68-year-old male with history of hypertension, seizure disorder, hypercholesterolemia, HIV reported to be well-controlled on Genvoya with allegedly undetectable HIV viral load status post left hip fracture with hip replacement presented to hospital complaining of a trip and fall shortly prior to presentation. Patient [place] that [place] on his right hip and subsequently was unable to walk or weight- bear. He was brought in by ambulance for evaluation. He reports significant pain to his right hip. She denied any head trauma or LOC. - Current Medication List Current Medications: Active Medications Acetaminophen (Ofirmev Injection -) 1,000 mg IVPB Q6H PRN PRN Reason: PAIN LEVEL 1-5 Aspirin (Asa -) 325 mg PO DAILY [facility] Last Admin: 03/20/19 09:08 Dose: 325 mg Atorvastatin Calcium (Lipitor -) 10 mg PO HS [facility] Last Admin: 03/20/19 21:08 Dose: 10 mg Elvitegravir/Cobicis/Emtricit/Tenof (Genvoya (Non-Formulary)) 1 tab PO DAILY@ 0800 [facility] Last Admin: 03/20/19 09:29 Dose: Not Given Levetiracetam (Keppra -) 500 mg PO BID [facility] Last Admin: 03/20/19 21:08 Dose: 500 mg Lisinopril (Prinivil) 5 mg PO DAILY [facility] Last Admin: 03/20/19 09:08 Dose: 5 mg Oxycodone HCl (Roxicodone -) 5 mg PO Q4H PRN PRN Reason: PAIN LEVEL 1-5 Last Admin: 03/21/19 07:16 Dose: 5 mg - Objective Vital Signs: Vital Signs Temperature 98.9 F 03/21/19 05:35 Pulse Rate 89 03/21/19 05:35 Respiratory Rate 18 03/21/19 05:35 Blood Pressure 112/62 03/21/19 05:35 O2 Sat by Pulse Oximetry (%) 96 03/20/19 20:28 Additional Findings/Remarks: Constitutional: Yes: No Distress, Calm, Thin Eyes: Yes: WNL, Conjunctiva Clear HENT: Yes: WNL, Atraumatic, Normocephalic Neck: Yes: WNL, Supple, Trachea Midline Cardiovascular: Yes: WNL, Regular Rate and Rhythm, Other (venous stasis changes to LE) Respiratory: Yes: WNL, Regular, CTA Bilaterally Gastrointestinal: Yes: WNL, Normal Bowel Sounds ...Rectal Exam: Yes: Deferred Genitourinary: Yes: WNL Breast(s): Yes: WNL Musculoskeletal: Yes: Other (decreased ROM secondary to surgical incision) Extremities: Yes: s/p ORIF Edema: No Peripheral Pulses WNL: Yes Peripheral Pulses: Left Radial: 2+, Right Radial: 2+, Left Doralis Pedis: 2+, Right Dorsalis Pedis: 2+, Left Femoral: 2+, Right Femoral: 2+ Integumentary: Yes: Other (funal nail infection noted to nails) Neurological: Yes: WNL, Alert, Oriented Labs: INR, PTT INR 1.23 (0.83-1.09) H 03/20/19 08:00 Problem List - Problems (1) HTN (hypertension) Assessment/Plan: normotensive c/w with home lisinipril Code(s): I10 - ESSENTIAL (PRIMARY) HYPERTENSION (2) Seizure Assessment/Plan: no seizure activity c/w with home dose keppra keppra level pending Code(s): R56.9 - UNSPECIFIED CONVULSIONS (3) HLD (hyperlipidemia) Assessment/Plan: c/w home dose of atorvastatin low fat low choleterol diet after surgery Code(s): E78.5 - HYPERLIPIDEMIA, UNSPECIFIED (4) HIV (human immunodeficiency virus infection) Assessment/Plan: c/w antivirals Code(s): B20 - HUMAN IMMUNODEFICIENCY VIRUS [HIV] DISEASE (5) Prophylactic measure Assessment/Plan: FEN low salt diet IVF dc'd monitor electrolytes DVT heparin sq Dispo maintain as inpatient full code discharge planning to STR/SNF Code(s): Z29.9 - ENCOUNTER FOR PROPHYLACTIC MEASURES, UNSPECIFIED (6) Closed right femoral fracture Assessment/Plan: S/P ORIF POD#2 pain management PT Code(s): S72.91XA - UNSP FRACTURE OF RIGHT FEMUR, INIT FOR CLOS FX Qualifiers: Encounter type: initial encounter Femur location: base of neck Fracture alignment: nondisplaced Qualified Code(s): S72.044A - Nondisplaced fracture of base of neck of right femur, initial encounter for closed fracture (7) LFTs abnormal Assessment/Plan: trending down avoid hepatotixic agents Code(s): R94.5 - ABNORMAL RESULTS OF LIVER FUNCTION STUDIES Visit type - Emergency Visit Emergency Visit: Yes ED Registration Date: 03/18/19 Care time: The patient presented to the Emergency Department on the above date and was hospitalized for further evaluation of their emergent condition. - New Patient This patient is new to me today: No - Critical Care Critical Care patient: No - Discharge Referral Referred to [facility] Med P.C.: No
[2019-03-21 08:43] LABS: ALBUMIN 2.6 g/dl (3.4-5.0); BILIRUBIN,TOTAL 1.1 mg/dL (0.2-1); BLOOD UREA NITROGEN 24.2 mg/dL (7-18); CALCIUM 8.8 mg/dL (8.5-10.1); CREATININE 1.1 mg/dL (0.55-1.3); POTASSIUM 3.7 mmol/L (3.5-5.1); TOT PROT 5.6 g/dl (6.4-8.2)
[2019-03-21 09:17] LABS: INR 1.16 (0.83-1.09); PROTHROMBIN TIME (PATIENT) 13.7 SEC (9.7-13.0)
[2019-03-21] MEDS ORDERED: PT OWN MED DRAWER 7, Y5N ONE (09:30)
[2019-03-21] MEDS: LISINOPRIL 5 MG TABLET (FP) PO SCH (09:35)
[2019-03-21] MEDS: levETIRAcetam 500 MG TABLET (FP) PO SCH ×2 (09:35→21:05)
[2019-03-21] MEDS: ASPIRIN 325 MG TABLET PO SCH (09:35)
--- NOTE | 2019-03-21 10:13 | PN ---
Progress Note (short form) - Note Progress Note: Ortho Pt seen and examined s/p right hip cannulated screws pod #2 Selected Entries 03/21/19 09:00 Temperature 97.6 F Pulse Rate 121 H Respiratory 18 Rate Blood Pressure 108/61 Laboratory Tests 03/21/19 07:35 WBC 7.1 Hgb 11.8 Hct 34.1 L Plt Count 95 L dressing c/d/i, calf soft, nt nvi a/p PT wbat dvt ppx pain control d/c planning
[2019-03-21] MEDS: ATORVASTATIN CA 10 MG TABLET (FP) PO SCH (21:05)
[2019-03-22 06:59] VITALS: TEMP 98
--- NOTE | 2019-03-22 08:25 | PN ---
Progress Note, Physician Chief Complaint: S/P ORIF POD#2. Pain well managed, awaiting rehab placement History of Present Illness: 68-year-old male with history of hypertension, seizure disorder, hypercholesterolemia, HIV reported to be well-controlled on Genvoya with allegedly undetectable HIV viral load status post left hip fracture with hip replacement presented to hospital complaining of a trip and fall shortly prior to presentation. Patient [place] that [place] his right hip and subsequently was unable to walk or weight- bear. He was brought in by ambulance for evaluation. He reports significant pain to his right hip. She denied any head trauma or LOC. - Current Medication List Current Medications: Active Medications Acetaminophen (Ofirmev Injection -) 1,000 mg IVPB Q6H PRN PRN Reason: PAIN LEVEL 1-5 Aspirin (Asa -) 325 mg PO DAILY [facility] Last Admin: 03/21/19 09:35 Dose: 325 mg Atorvastatin Calcium (Lipitor -) 10 mg PO HS [facility] Last Admin: 03/21/19 21:05 Dose: 10 mg Elvitegravir/Cobicis/Emtricit/Tenof (Genvoya (Non-Formulary)) 1 tab PO DAILY@ 0800 [facility] Last Admin: 03/21/19 08:00 Dose: Not Given Levetiracetam (Keppra -) 500 mg PO BID [facility] Last Admin: 03/21/19 21:05 Dose: 500 mg Lisinopril (Prinivil) 5 mg PO DAILY [facility] Last Admin: 03/21/19 09:35 Dose: 5 mg Oxycodone HCl (Roxicodone -) 5 mg PO Q4H PRN PRN Reason: PAIN LEVEL 1-5 Last Admin: 03/21/19 18:55 Dose: 5 mg - Objective Vital Signs: Vital Signs Temperature 98 F 03/22/19 06:58 Pulse Rate 69 03/22/19 06:58 Respiratory Rate 19 03/22/19 06:58 Blood Pressure 104/68 03/22/19 06:58 O2 Sat by Pulse Oximetry (%) 96 03/21/19 21:00 Additional Findings/Remarks: Constitutional: Yes: No Distress, Calm, Thin Eyes: Yes: WNL, Conjunctiva Clear HENT: Yes: WNL, Atraumatic, Normocephalic Neck: Yes: WNL, Supple, Trachea Midline Cardiovascular: Yes: WNL, Regular Rate and Rhythm, Other (venous stasis changes to LE) Respiratory: Yes: WNL, Regular, CTA Bilaterally Gastrointestinal: Yes: WNL, Normal Bowel Sounds ...Rectal Exam: Yes: Deferred Genitourinary: Yes: WNL Breast(s): Yes: WNL Musculoskeletal: Yes: Other (decreased ROM secondary to surgical incision) Extremities: Yes: s/p ORIF Edema: No Peripheral Pulses WNL: Yes Peripheral Pulses: Left Radial: 2+, Right Radial: 2+, Left Doralis Pedis: 2+, Right Dorsalis Pedis: 2+, Left Femoral: 2+, Right Femoral: 2+ Integumentary: Yes: Other (funal nail infection noted to nails) Neurological: Yes: WNL, Alert, Oriented Labs: CBC, BMP 03/21/19 07:35 03/21/19 07:35 INR, PTT INR 1.16 (0.83-1.09) H 03/21/19 07:35 Problem List - Problems (1) HTN (hypertension) Assessment/Plan: normotensive c/w with home lisinipril Code(s): I10 - ESSENTIAL (PRIMARY) HYPERTENSION (2) Seizure Assessment/Plan: no seizure activity c/w with home dose keppra keppra level pending Code(s): R56.9 - UNSPECIFIED CONVULSIONS (3) HLD (hyperlipidemia) Assessment/Plan: c/w home dose of atorvastatin low fat low choleterol diet after surgery Code(s): E78.5 - HYPERLIPIDEMIA, UNSPECIFIED (4) HIV (human immunodeficiency virus infection) Assessment/Plan: c/w antivirals Code(s): B20 - HUMAN IMMUNODEFICIENCY VIRUS [HIV] DISEASE (5) Prophylactic measure Assessment/Plan: FEN low salt diet IVF dc'd monitor electrolytes DVT heparin sq Dispo maintain as inpatient full code discharge planning to STR/SNF Code(s): Z29.9 - ENCOUNTER FOR PROPHYLACTIC MEASURES, UNSPECIFIED (6) Closed right femoral fracture Assessment/Plan: S/P ORIF POD#2 pain management PT Code(s): S72.91XA - UNSP FRACTURE OF RIGHT FEMUR, INIT FOR CLOS FX Qualifiers: Encounter type: initial encounter Femur location: base of neck Fracture alignment: nondisplaced Qualified Code(s): S72.044A - Nondisplaced fracture of base of neck of right femur, initial encounter for closed fracture (7) LFTs abnormal Assessment/Plan: trending down avoid hepatotixic agents Code(s): R94.5 - ABNORMAL RESULTS OF LIVER FUNCTION STUDIES
[2019-03-22 09:12] VITALS: BP 100/61; PULSE 96
[2019-03-22] MEDS: ASPIRIN 325 MG TABLET PO SCH (09:53)
[2019-03-22] MEDS: levETIRAcetam 500 MG TABLET (FP) PO SCH (09:54)
[2019-03-22] MEDS: LISINOPRIL 5 MG TABLET (FP) PO SCH (09:54)
[2019-03-22] MEDS: ELVITEG/COB/EMTRI/TENOF (GENVOYA) TABLET (NF) PO SCH (10:05)
[2019-03-22] MEDS: oxyCODONE HCL 5 MG TABLET PO PRN (11:25)
--- NOTE | 2019-03-22 12:22 | DS ---
Physical Exam: SUBJECTIVE: Patient seen and examined S/P ORIF POD#3Pain well managed, awaiting rehab placement 68-year-old male with history of hypertension, seizure disorder, hypercholesterolemia, HIV reported to be well-controlled on Genvoya with allegedly undetectable HIV viral load status post left hip fracture with hip replacement presented to hospital complaining of a trip and fall shortly prior to presentation. Patient reports that [place] and fell on his right hip and subsequently was unable to walk or weight- bear. He was brought in by ambulance for evaluation. He reports significant pain to his right hip. She denied any head trauma or LOC. OBJECTIVE: Vital Signs Period Temp Pulse Resp BP Sys/Uriostegui Pulse Ox Last 24 Hr 98 F-99.2 F 69-100 18-19 100-105/61-68 96 PHYSICAL EXAM Constitutional: Yes: No Distress, Calm, Thin Eyes: Yes: WNL, Conjunctiva Clear HENT: Yes: WNL, Atraumatic, Normocephalic Neck: Yes: WNL, Supple, Trachea Midline Cardiovascular: Yes: WNL, Regular Rate and Rhythm, Other (venous stasis changes to LE) Respiratory: Yes: WNL, Regular, CTA Bilaterally Gastrointestinal: Yes: WNL, Normal Bowel Sounds ...Rectal Exam: Yes: Deferred Genitourinary: Yes: WNL Breast(s): Yes: WNL Musculoskeletal: Yes: Other (decreased ROM secondary to surgical incision) Extremities: Yes: s/p ORIF Edema: No Peripheral Pulses WNL: Yes Peripheral Pulses: Left Radial: 2+, Right Radial: 2+, Left Doralis Pedis: 2+, Right Dorsalis Pedis: 2+, Left Femoral: 2+, Right Femoral: 2+ Integumentary: Yes: Other (funal nail infection noted to nails) Neurological: Yes: WNL, Alert, Oriented LABS HOSPITAL COURSE: Date of Admission:03/18/19 Date of Discharge: 03/22/19 Problem List - Problems (1) HTN (hypertension) Assessment/Plan: normotensive c/w with home lisinipril on discharge Code(s): I10 - ESSENTIAL (PRIMARY) HYPERTENSION (2) Seizure Assessment/Plan: no seizure activity c/w with home dose keppra on discharge Code(s): R56.9 - UNSPECIFIED CONVULSIONS (3) HLD (hyperlipidemia) Assessment/Plan: c/w home dose of atorvastatin on discharge low fat low choleterol diet Code(s): E78.5 - HYPERLIPIDEMIA, UNSPECIFIED (4) HIV (human immunodeficiency virus infection) Assessment/Plan: c/w antivirals Code(s): B20 - HUMAN IMMUNODEFICIENCY VIRUS [HIV] DISEASE (5) Prophylactic measure Assessment/Plan: FEN low fat low choleterol diet DVT heparin sq is pt is not mobile in STR Dispo full code discharge planning to [facility] for STR Code(s): Z29.9 - ENCOUNTER FOR PROPHYLACTIC MEASURES, UNSPECIFIED (6) Closed right femoral fracture Assessment/Plan: S/P ORIF POD#3 pain management with tramadol/tylenol c/w PT Code(s): S72.91XA - UNSP FRACTURE OF RIGHT FEMUR, INIT FOR CLOS FX Qualifiers: Encounter type: initial encounter Femur location: base of neck Fracture alignment: nondisplaced Qualified Code(s): S72.044A - Nondisplaced fracture of base of neck of right femur, initial encounter for closed fracture (7) LFTs abnormal Assessment/Plan: trended down to normal Code(s): R94.5 - ABNORMAL RESULTS OF LIVER FUNCTION STUDIES Medically cleared for discharge to [facility] for rehab Minutes to complete discharge: 60 Discharge Summary Problems reviewed: Yes Reason For Visit: CLOSED FRACTURE OF RIGHT FEMUR Current Active Problems Closed right femoral fracture (Acute) HIV (human immunodeficiency virus infection) (Acute) HLD (hyperlipidemia) (Acute) HTN (hypertension) (Acute) LFTs abnormal (Acute) Prophylactic measure (Acute) Seizure (Acute) Hospital Course: Problem List - Problems (1) HTN (hypertension) Assessment/Plan: normotensive c/w with home lisinipril on discharge Code(s): I10 - ESSENTIAL (PRIMARY) HYPERTENSION (2) Seizure Assessment/Plan: no seizure activity c/w with home dose keppra on discharge Code(s): R56.9 - UNSPECIFIED CONVULSIONS (3) HLD (hyperlipidemia) Assessment/Plan: c/w home dose of atorvastatin on discharge low fat low choleterol diet Code(s): E78.5 - HYPERLIPIDEMIA, UNSPECIFIED (4) HIV (human immunodeficiency virus infection) Assessment/Plan: c/w antivirals Code(s): B20 - HUMAN IMMUNODEFICIENCY VIRUS [HIV] DISEASE (5) Prophylactic measure Assessment/Plan: FEN low fat low choleterol diet DVT heparin sq is pt is not mobile in STR Dispo full code discharge planning to [facility] for STR Code(s): Z29.9 - ENCOUNTER FOR PROPHYLACTIC MEASURES, UNSPECIFIED (6) Closed right femoral fracture Assessment/Plan: S/P ORIF POD#3 pain management with tramadol/tylenol c/w PT Code(s): S72.91XA - UNSP FRACTURE OF RIGHT FEMUR, INIT FOR CLOS FX Qualifiers: Encounter type: initial encounter Femur location: base of neck Fracture alignment: nondisplaced Qualified Code(s): S72.044A - Nondisplaced fracture of base of neck of right femur, initial encounter for closed fracture (7) LFTs abnormal Assessment/Plan: trended down to normal Code(s): R94.5 - ABNORMAL RESULTS OF LIVER FUNCTION STUDIES Condition: Improved - Instructions Diet, Activity, Other Instructions: Discharge Instructions Post Operative Instructions Physical activity Physical therapy regimen will be determined at [facility]. Use assistive devices for ambulation at all times. Weight bearing as tolerated on your surgical side. Wound care Leave your surgical dressing in place. Do not change the dressing until seen by your surgeon in the office. No baths or showers. Do not submerge your incision. Do not apply any ointments or lotions to your incision. Please call the office if any Diet continue low fat low cholesterol diet . There are no dietary restrictions. Eat healthy, high-fiber foods. Drink 6 to 8 glasses of liquid each day. This will assist in keeping your bowels are regular. Pain management Any pain prescription medication ordered should be taken as prescribed for moderate to severe pain. Posterior Hip Precautions: Do not cross the leg you had surgery on over your other leg. (Do not cross your legs.)Use an elevated toilet seat. Do not sit on low chairs or beds. Take Aspirin 325 mg one time a day for a total of 6 weeks to prevent blood clots or until Dr Grossman tells you to stop Continue all other home medications. No changes made Call Dr. Grossman for any of the following: Severe pain not relieved by medication Fever of 101 or higher Excessive bleeding or drainage on dressing Inability to urinate If you experience chest pain or shortness of breath, please seek emergency care immediately. Please call the office at [phone] to confirm your post-op appointment for the week following surgery or when you get home from [facility] Referrals: José Miguel Grossman MD [Staff Physician] - Disposition: [facility] FACILITY - Home Medications Comprehensive Discharge Medication List: Ambulatory Orders Aspirin [Ecotrin] 81 mg PO DAILY 03/18/19 Atorvastatin Calcium 10 mg PO DAILY 03/18/19 Elviteg/Cob/Emtri/Tenof Alafen [Genvoya Tablet] 1 tab PO DAILY 03/18/19 Ferrous Sulfate 325 mg PO Q12H 03/18/19 Levetiracetam 500 mg PO BID 03/18/19 Lisinopril 5 mg PO DAILY 03/18/19 Aspirin [ASA -] 325 mg PO DAILY tablet 03/21/19 Elviteg/Cob/Emtri/Tenof Alafen [Genvoya (Non-Formulary)] 1 tab PO DAILY@0800 30 Days #30 tablet 03/21/19 Prescription Drug Monitoring Program (I-STOP) results: I-STOP reviewed and no issues identified Problem List - Problems (1) HTN (hypertension) Code(s): I10 - ESSENTIAL (PRIMARY) HYPERTENSION (2) Seizure Code(s): R56.9 - UNSPECIFIED CONVULSIONS (3) HLD (hyperlipidemia) Code(s): E78.5 - HYPERLIPIDEMIA, UNSPECIFIED (4) HIV (human immunodeficiency virus infection) Code(s): B20 - HUMAN IMMUNODEFICIENCY VIRUS [HIV] DISEASE (5) Prophylactic measure Code(s): Z29.9 - ENCOUNTER FOR PROPHYLACTIC MEASURES, UNSPECIFIED (6) Closed right femoral fracture Code(s): S72.91XA - UNSP FRACTURE OF RIGHT FEMUR, INIT FOR CLOS FX Qualifiers: Encounter type: initial encounter Femur location: base of neck Fracture alignment: nondisplaced Qualified Code(s): S72.044A - Nondisplaced fracture of base of neck of right femur, initial encounter for closed fracture (7) LFTs abnormal Code(s): R94.5 - ABNORMAL RESULTS OF LIVER FUNCTION STUDIES This patient is new to me today: No Emergency Visit: Yes ED Registration Date: 03/18/19 Care time: The patient presented to the Emergency Department on the above date and was hospitalized for further evaluation of their emergent condition. Critical Care patient: No - Discharge Referral Referred to [facility] No
[2019-03-22] MEDS ORDERED: PT OWN MED DRAWER 7, Y5N ONE (13:11)
[2019-03-23 15:31] VITALS: BMI 18.7
== END 2019-03-22 13:17 | DRG 482 ==
LOC: JER 18:01 → JERBED 20:42 → J6S 03-19 00:51
PROVIDERS: ADMIT Internal Medicine; ATTEND Nurse Practitioner Acute Care
PROC: 0QS604Z Reposition Right Upper Femur with Internal Fixation Device, Open Approach (ICD-10-PCS; principal; 2019-03-19 11:00)
DX: S72.044A Nondisplaced fracture of base of neck of right femur, initial encounter for closed fracture (principal); E78.5 Hyperlipidemia, unspecified; G40.909 Epilepsy, unspecified, not intractable, without status epilepticus; Z21 Asymptomatic human immunodeficiency virus [HIV] infection status; E83.52 Hypercalcemia; I10 Essential (primary) hypertension; E80.6 Other disorders of bilirubin metabolism; E16.2 Hypoglycemia, unspecified; D69.6 Thrombocytopenia, unspecified; B35.1 Tinea unguium; R94.5 Abnormal results of liver function studies; Z96.642 Presence of left artificial hip joint; W18.39XA Other fall on same level, initial encounter; Y92.89 Other specified places as the place of occurrence of the external cause
CPT/HCPCS: 36415; 71045-TC-FY; 73502-TC-LT-FY; 73523-TC-FY; 76000-TC-FY; 76705-TC; 80053; 80177; 82248; 82962; 83735; 84100; 85025; 85610; 85730; 86850; 86900; 86901; 93005; 93010; 94010; 94760; 97116-GP; 97162-GP; 99285-25; J0131; J7030